=== PATIENT | female | born 1955 | race Caucasian/White ===

== ENCOUNTER 2017-01-30 06:10 | Emergency (ER) | payer MEDICARE, MEDICAID ==
[~2017-01-30] VITALS: Ht 170.2 cm; Wt 68.2 kg
[2017-01-30] MEDS ORDERED: LORA10TA7 PO (06:38)
[2017-01-30] MEDS ORDERED: HALO5 PO (06:38)
[2017-01-30] MEDS ORDERED: BENZ1TAB10 PO (06:38)
[2017-01-30] MEDS ORDERED: DIVA500T35 PO (06:38)
[2017-01-30] MEDS ORDERED: FOLI1 PO (06:38)
[2017-01-30 07:00] LABS: BASOPHILS # (AUTO) 0.03 K/uL (0.00-0.20); BASOPHILS % (AUTO) 0.5 % (0.0-2.0); EOSINOPHILS # (AUTO) 0.02 K/uL (0.00-0.70); EOSINOPHILS % (AUTO) 0.41 % (1.0-6.0); HEMOGLOBIN 14.2 g/dL (12.0-16.0); LYMPHOCYTES # (AUTO) 1.5 K/uL (1.0-4.8); LYMPHOCYTES % (AUTO) 25.7 % (22.0-44.0); MEAN CORPUSCULAR HEMOGLOBIN 34.1 pg (26.0-34.0); MEAN CORPUSCULAR HGB CONC 33.8 G/dL (31.0-37.0); MEAN CORPUSCULAR VOLUME 101 fL (80-100); MONOCYTES # (AUTO) 0.6 K/uL (0.1-1.0); MONOCYTES % (AUTO) 9.2 % (2.0-9.0); NEUTROPHILS # (AUTO) 3.8 K/uL (1.8-7.7); NEUTROPHILS % (AUTO) 64.2 % (40.0-70.0); PLATELET COUNT (AUTO) 180 K/uL (150-450); RED BLOOD CELL COUNT(AUTO) 4.16 MIL/uL (4.00-5.20); RED CELL DISTRIBUTION WIDTH 12.8 % (11.5-14.5)
[2017-01-30 07:24] LABS: RBC MORPHOLOGY COMMENT ABNORMAL RBC MORPH
[2017-01-30 07:27] LABS: ANION GAP 9 mmol/L (8-16); CALCIUM, TOTAL 8.6 mg/dL (8.8-10.5); CARBON DIOXIDE 28 mmol/L (22-29); CHLORIDE 107 mmol/L (98-107); CREATININE 0.68 mg/dL (0.60-1.30); GLOMERULAR FILTR. RATE CALC > 60 mL/min (>60); POTASSIUM 4.3 mmol/L (3.5-5.1); SODIUM SERUM 144 mmol/L (136-145); UREA NITROGEN, BLOOD 11 mg/dL (7-18)
[2017-01-30 07:34] LABS: ALANINE AMINOTRANSFERASE 32 U/L (12-78); ALBUMIN 3.3 g/dL (3.4-5.0); ASPARTATE AMINOTRANSFERASE 22 U/L (15-37); BILIRUBIN,TOTAL 0.5 mg/dL (0.1-1.0); TOTAL PROTEIN, SERUM 6.6 g/dL (6.4-8.2); VALPROIC ACID 59 mcg/mL (50-100)
[2017-01-30 07:50] VITALS: BP 142/78
== END 2017-01-30 08:47 | disposition home or self-care (01) ==
LOC: EMS 06:12
DX: R55 Syncope and collapse (principal); M54.2 Cervicalgia
CPT/HCPCS: 70450; 93005; 99285

== ENCOUNTER 2020-05-30 09:25 | Emergency (ER) | payer MEDICARE, MEDICAID ==
[~2020-05-30] VITALS: Ht 165.1 cm; Wt 59.1 kg
[~2020-05-30 09:25] MED LIST: BENZ1TAB10 PO; DIVA-112 PO; FOLI-130 PO; HALO5TAB2 PO; LORA10TA7 PO
[2020-05-30 10:37] LABS: BASOPHILS % (AUTO) 0.7 % (0.0-2.0); EOSINOPHILS % (AUTO) 1.1 % (1.0-6.0); HEMATOCRIT 38.3 % (36-46); HEMOGLOBIN 13.2 g/dL (12.0-16.0); LYMPHOCYTES # (AUTO) 1.4 K/uL (1.0-4.8); LYMPHOCYTES % (AUTO) 35.5 % (22.0-44.0); MEAN CORPUSCULAR HEMOGLOBIN 34.4 pg (26.0-34.0); MEAN CORPUSCULAR HGB CONC 34.5 G/dL (31.0-37.0); MEAN CORPUSCULAR VOLUME 100 fL (80-100); MONOCYTES # (AUTO) 0.3 K/uL (0.1-1.0); MONOCYTES % (AUTO) 7.6 % (2.0-9.0); NEUTROPHILS # (AUTO) 2.2 K/uL (1.8-7.7); NEUTROPHILS % (AUTO) 55.1 % (40.0-70.0); PLATELET COUNT (AUTO) 202 K/uL (150-450); RED BLOOD CELL COUNT(AUTO) 3.85 MIL/uL (4.00-5.20); RED CELL DISTRIBUTION WIDTH 14.5 % (11.5-14.5)
[2020-05-30 10:50] LABS: ANION GAP 6 mmol/L (8-16); CALCIUM, TOTAL 9.4 mg/dL (8.8-10.5); CARBON DIOXIDE 27 mmol/L (22-29); CHLORIDE 103 mmol/L (98-107); CREATININE 0.84 mg/dL (0.60-1.30); GLOMERULAR FILTR. RATE CALC > 60 mL/min (>60); GLUCOSE,RANDOM 144 mg/dL (70-110); POTASSIUM 3.7 mmol/L (3.5-5.1); SODIUM SERUM 136 mmol/L (136-145); UREA NITROGEN, BLOOD 11 mg/dL (7-18)
[2020-05-30 10:55] LABS: ALANINE AMINOTRANSFERASE 21 U/L (12-78); ALBUMIN 3.1 g/dL (3.4-5.0); ALKALINE PHOSPHATASE 50 U/L (46-116); ASPARTATE AMINOTRANSFERASE 22 U/L (15-37); BILIRUBIN,TOTAL 0.4 mg/dL (0.1-1.0); TOTAL PROTEIN, SERUM 6.7 g/dL (6.4-8.2)
[2020-05-30 11:02] LABS: AMPHET/METH SCREEN,URINE NEGATIVE (NEGATIVE); BARBITURATE SCREEN, URINE NEGATIVE (NEGATIVE); BENZODIAZEPINES SCREEN,URINE NEGATIVE (NEGATIVE); CANNABINOID SCREEN,URINE NEGATIVE (NEGATIVE); COCAINE SCREEN,URINE NEGATIVE (NEGATIVE); METHADONE SCREEN, URINE NEGATIVE (NEGATIVE); OPIATE SCREEN,URINE NEGATIVE (NEGATIVE)
[2020-05-30 11:03] LABS: PHENCYCLIDINE SCREEN,URINE NEGATIVE (NEGATIVE)
[2020-05-30 12:49] LABS: BILIRUBIN,URINE NEGATIVE (NEGATIVE); GLUCOSE, URINE (UA) NEGATIVE (NEGATIVE); KETONES,URINE NEGATIVE (NEGATIVE); LEUKOCYTE ESTERASE ,URINE SMALL (NEGATIVE); NITRATE,URINE NEGATIVE (NEGATIVE); OCCULT BLOOD,URINE NEGATIVE (NEGATIVE); PROTEIN,URINE NEGATIVE (NEGATIVE)
[2020-05-30 13:04] LABS: APPEARANCE,URINE HAZY (CLEAR)
[2020-05-30 13:10] LABS: BACTERIA,URINE None Seen /HPF (None Seen); RBC,URINE None Seen /HPF (0-2)
[2020-05-30 14:39] VITALS: BP 138/77
== END 2020-05-30 14:42 | disposition home or self-care (01) ==
LOC: EMS 09:27
DX: F69 Unspecified disorder of adult personality and behavior (principal); D72.819 Decreased white blood cell count, unspecified; F31.9 Bipolar disorder, unspecified
CPT/HCPCS: 36415; 80053; 80307; 81001; 85025; 99285; G0480; 51702

== ENCOUNTER 2023-10-12 16:23 | Inpatient (IN) | payer MEDICARE, OTHER ==
[~2023-10-12] VITALS: Ht 154.9 cm; Wt 59.9 kg
[~2023-10-12 16:23] MED LIST changes: -BENZ1TAB10 PO; +BENZ1TAB84 PO
[2023-10-12] MEDS ORDERED: SODIUM CHLORIDE 0.9% 1,800 ML IV ONE ×2 (17:45→19:15)
[2023-10-12] MEDS ORDERED: 0.9% SODIUM CHLORIDE 10 ML SYRINGE IVP PRN (17:45)
[2023-10-12] MEDS ORDERED: DIVA-85 PO (17:46)
[2023-10-12] MEDS ORDERED: MIRT-92 PO (17:46)
[2023-10-12] MEDS ORDERED: OLAN5TAB77 PO (17:46)
[2023-10-12] MEDS ORDERED: FAMO20 PO (17:46)
[2023-10-12 18:47] LABS: BASOPHILS % (AUTO) 0.6 % (0.0-2.0); EOSINOPHILS % (AUTO) 0.4 % (1.0-6.0); HEMATOCRIT 41.8 % (36-46); HEMOGLOBIN 14.9 g/dL (12.0-16.0); LYMPHOCYTES # (AUTO) 2.3 K/uL (1.0-4.8); LYMPHOCYTES % (AUTO) 28.5 % (22.0-44.0); MEAN CORPUSCULAR HGB CONC 35.5 G/dL (31.0-37.0); MEAN CORPUSCULAR VOLUME 104 fL (80-100); MONOCYTES # (AUTO) 1.1 K/uL (0.1-1.0); NEUTROPHILS # (AUTO) 4.6 K/uL (1.8-7.7); NEUTROPHILS % (AUTO) 56.5 % (40.0-70.0); PLATELET COUNT (AUTO) 170 K/uL (150-450); RED BLOOD CELL COUNT(AUTO) 4.02 MIL/uL (4.00-5.20); RED CELL DISTRIBUTION WIDTH 15.2 % (11.5-14.5); WHITE BLOOD COUNT (AUTO) 8.2 K/uL (4.5-11.0)
[2023-10-12] MEDS ORDERED: LORA-999 PO (18:49)
[2023-10-12] MEDS ORDERED: HYDR-4723 PO (18:49)
[2023-10-12] MEDS ORDERED: MULT-248 PO (18:49)
[2023-10-12] MEDS ORDERED: HALO5TAB23 PO (18:49)
[2023-10-12] MEDS ORDERED: SENN-376 PO (18:49)
[2023-10-12] MEDS ORDERED: CHOL25TA4 PO (18:49)
[2023-10-12] MEDS ORDERED: DIVA125C20 PO (18:49)
[2023-10-12] MEDS ORDERED: BENZ1TAB84 PO (18:49)
[2023-10-12 18:53] LABS: ANION GAP 8 mmol/L (8-16); CALCIUM, TOTAL 10.3 mg/dL (8.8-10.5); CARBON DIOXIDE 30 mmol/L (22-29); CHLORIDE 106 mmol/L (98-107); CREATININE 0.97 mg/dL (0.60-1.30); GLOMERULAR FILTR. RATE CALC 57 mL/min (>60); GLUCOSE,RANDOM 96 mg/dL (70-110); INR 1.2 (0.9-1.1); PROTHROMBIN TIME 12.1 SEC (9.4-11.6); SODIUM SERUM 144 mmol/L (136-145); UREA NITROGEN, BLOOD 21 mg/dL (7-18)
[2023-10-12 18:59] LABS: ALANINE AMINOTRANSFERASE 43 U/L (12-78); ALBUMIN 3.3 g/dL (3.4-5.0); ALKALINE PHOSPHATASE 78 U/L (46-116); ASPARTATE AMINOTRANSFERASE 78 U/L (15-37); BILIRUBIN,TOTAL 0.9 mg/dL (0.1-1.0)
[2023-10-12] MEDS ORDERED: CefTRIAXone 1 GM/DEXTROSE 50 ML IV ONE (19:15)
[2023-10-12] MEDS ORDERED: CEPH500C2 PO (19:23)
[2023-10-12] MEDS ORDERED: DIVA-111 PO (19:23)
[2023-10-12 19:32] LABS: APPEARANCE,URINE CLEAR (CLEAR); BILIRUBIN,URINE NEGATIVE (NEGATIVE); COLOR,URINE YELLOW (YELLOW); GLUCOSE, URINE (UA) NEGATIVE (NEGATIVE); KETONES,URINE NEGATIVE (NEGATIVE); LEUKOCYTE ESTERASE ,URINE NEGATIVE (NEGATIVE); NITRATE,URINE NEGATIVE (NEGATIVE); OCCULT BLOOD,URINE NEGATIVE (NEGATIVE); PROTEIN,URINE NEGATIVE (NEGATIVE); SPECIFIC GRAVITIY, URINE 1.023 (1.003-1.030)
[2023-10-12 19:35] LABS: RBC MORPHOLOGY COMMENT ABNORMAL RBC MORPH
[2023-10-12] MEDS ORDERED: ONDANSETRON HCL 4 MG/2 ML VIAL IVP PRN (20:00)
[2023-10-12] MEDS ORDERED: SODIUM CHLORIDE 0.9% 1,000 ML IV ONE (20:00)
[2023-10-12] MEDS ORDERED: ACETAMINOPHEN 325 MG TABLET PO PRN (20:00)
[2023-10-12 20:38] LABS: COVID AG,FIA SOURCE NASAL SWAB
[2023-10-12] MEDS: DOCUSATE SODIUM 100 MG CAPSULE PO SCH (21:00)
[2023-10-12 21:17] LABS: SARS-COV2 (COVID) ANTIGEN,FIA Negative (Negative)
[2023-10-12 22:55] VITALS: BP 138/98; PULSE 89; RESP 24; TEMP 97.7
[2023-10-13] VITALS: BP 122/60; PULSE 86; RESP 20; TEMP 98.3
[2023-10-13 04:00] VITALS: BP 111/61; PULSE 68; RESP 20; TEMP 98.1
[2023-10-13 07:23] VITALS: BP 118/89; PULSE 87; RESP 18; TEMP 98
[2023-10-13] MEDS: HEPARIN SODIUM,PORCINE 5,000 UNITS/ML VIAL SQ SCH ×4 (08:17→23:42)
[2023-10-13] MEDS: LORazepam 2 MG/ML VIAL IM PRN ×3 (08:17→23:44)
[2023-10-13] MEDS: FAMOTIDINE 20 MG TABLET PO SCH (09:00)
[2023-10-13] MEDS: DIVALPROEX SODIUM 250 MG DR TABLET PO SCH ×3 (09:00→23:42)
[2023-10-13] MEDS: DOCUSATE SODIUM 100 MG CAPSULE PO SCH ×2 (09:00→23:42)
[2023-10-13 11:41] VITALS: BP 113/65; PULSE 90; RESP 18; TEMP 98
[2023-10-13 15:20] VITALS: BP 130/67; PULSE 76; RESP 18; TEMP 98
[2023-10-13 19:21] VITALS: BP 122/64; PULSE 77; RESP 19; TEMP 97.7
[2023-10-13] MEDS ORDERED: SODIUM CHLORIDE 0.9% 500 ML IV ONE (23:28)
[2023-10-13] MEDS: CefTRIAXone 1 GM/DEXTROSE 50 ML IV SCH (23:41)
[2023-10-14 00:24] VITALS: BP 124/63; PULSE 74; RESP 19; TEMP 98.3
[2023-10-14 05:47] VITALS: BP 136/62; PULSE 71; RESP 18; TEMP 98.3
[2023-10-14 07:22] VITALS: BP 118/62; PULSE 73; RESP 18; TEMP 98
[2023-10-14] MEDS: HEPARIN SODIUM,PORCINE 5,000 UNITS/ML VIAL SQ SCH ×2 (08:22→16:47)
[2023-10-14] MEDS: DIVALPROEX SODIUM 250 MG DR TABLET PO SCH ×3 (08:22→20:32)
[2023-10-14] MEDS: DOCUSATE SODIUM 100 MG CAPSULE PO SCH ×2 (08:22→20:32)
[2023-10-14] MEDS: FAMOTIDINE 20 MG TABLET PO SCH (08:23)
[2023-10-14] MEDS: LORazepam 2 MG/ML VIAL IVP PRN (11:03)
[2023-10-14 11:17] VITALS: BP 130/62; PULSE 81; RESP 18; TEMP 98
[2023-10-14 15:57] VITALS: BP 121/65; PULSE 81; RESP 18; TEMP 98
[2023-10-14 20:10] VITALS: BP 145/63; PULSE 81; RESP 18; TEMP 97.9
[2023-10-14] MEDS: CefTRIAXone 1 GM/DEXTROSE 50 ML IV SCH (20:32)
[2023-10-15] MEDS: HEPARIN SODIUM,PORCINE 5,000 UNITS/ML VIAL SQ SCH ×4 (00:48→23:10)
[2023-10-15 00:54] VITALS: BP 127/78; PULSE 91; RESP 18; TEMP 98.3
[2023-10-15 05:44] VITALS: BP 134/76; PULSE 84; RESP 18; TEMP 97.7
[2023-10-15 07:40] VITALS: BP 128/53; PULSE 72; RESP 18; TEMP 97.9
[2023-10-15] MEDS: DOCUSATE SODIUM 100 MG CAPSULE PO SCH ×2 (09:11→20:11)
[2023-10-15] MEDS: DIVALPROEX SODIUM 250 MG DR TABLET PO SCH ×3 (09:11→21:06)
[2023-10-15] MEDS: FAMOTIDINE 20 MG TABLET PO SCH (09:11)
[2023-10-15 11:35] VITALS: BP 136/75; PULSE 84; RESP 18; TEMP 97.1
[2023-10-15 15:34] VITALS: BP 140/78; PULSE 90; RESP 18; TEMP 97.9
[2023-10-15] MEDS: CefTRIAXone 1 GM/DEXTROSE 50 ML IV SCH (20:11)
[2023-10-15 20:27] VITALS: BP 104/49; PULSE 82; RESP 17; TEMP 97.3
[2023-10-15] MEDS: LORazepam 2 MG/ML VIAL IVP PRN (22:00)
[2023-10-16 00:17] VITALS: BP 125/68; PULSE 77; RESP 17; TEMP 97.3
[2023-10-16 04:15] VITALS: BP 118/59; PULSE 80; RESP 18; TEMP 97.9
[2023-10-16] MEDS: HEPARIN SODIUM,PORCINE 5,000 UNITS/ML VIAL SQ SCH ×2 (08:00→16:00)
[2023-10-16 08:22] VITALS: BP 106/64; PULSE 65; RESP 18; TEMP 98.1
[2023-10-16] MEDS: DOCUSATE SODIUM 100 MG CAPSULE PO SCH (08:48)
[2023-10-16] MEDS: FAMOTIDINE 20 MG TABLET PO SCH (08:50)
[2023-10-16 11:34] LABS: BASOPHILS % (AUTO) 0.8 % (0.0-2.0); EOSINOPHILS % (AUTO) 3.6 % (1.0-6.0); HEMATOCRIT 35.4 % (36-46); HEMOGLOBIN 12.9 g/dL (12.0-16.0); LYMPHOCYTES # (AUTO) 2.4 K/uL (1.0-4.8); LYMPHOCYTES % (AUTO) 51.4 % (22.0-44.0); MEAN CORPUSCULAR HEMOGLOBIN 37.8 pg (26.0-34.0); MEAN CORPUSCULAR HGB CONC 36.3 G/dL (31.0-37.0); MEAN CORPUSCULAR VOLUME 104 fL (80-100); MONOCYTES # (AUTO) 0.4 K/uL (0.1-1.0); MONOCYTES % (AUTO) 9.4 % (2.0-9.0); NEUTROPHILS # (AUTO) 1.6 K/uL (1.8-7.7); PLATELET COUNT (AUTO) 164 K/uL (150-450); RED CELL DISTRIBUTION WIDTH 15.2 % (11.5-14.5); WHITE BLOOD COUNT (AUTO) 4.7 K/uL (4.5-11.0)
[2023-10-16 11:39] LABS: NEUTROPHILS % (AUTO) 24.8 % (40.0-70.0); RBC MORPHOLOGY COMMENT ABNORMAL RBC MORPH
[2023-10-16] MEDS: DIVALPROEX SODIUM 250 MG DR TABLET PO SCH ×2 (11:48→16:00)
[2023-10-16 11:50] LABS: ANION GAP 9 mmol/L (8-16); CALCIUM, TOTAL 9.4 mg/dL (8.8-10.5); CARBON DIOXIDE 27 mmol/L (22-29); CHLORIDE 108 mmol/L (98-107); CREATININE 0.69 mg/dL (0.60-1.30); GLOMERULAR FILTR. RATE CALC > 60 mL/min (>60); GLUCOSE,RANDOM 111 mg/dL (70-110); POTASSIUM 3.8 mmol/L (3.5-5.1); SODIUM SERUM 144 mmol/L (136-145); UREA NITROGEN, BLOOD 13 mg/dL (7-18)
[2023-10-16 16:16] VITALS: BP 104/61; PULSE 77; RESP 18; TEMP 96.5
== END 2023-10-16 19:15 | disposition home or self-care (01) | DRG 871 ==
LOC: EMS 16:25 → 5S 23:20 → 6S 10-16 03:50
PROVIDERS: ADMIT Internal Medicine; ATTEND Internal Medicine
DX: A41.9 Sepsis, unspecified organism (principal); G92.8 Other toxic encephalopathy; N39.0 Urinary tract infection, site not specified; F31.9 Bipolar disorder, unspecified; G20.A1 Parkinson's disease without dyskinesia, without mention of fluctuations; Z20.822 Contact with and (suspected) exposure to COVID-19; F02.80 Dementia in other diseases classified elsewhere, unspecified severity, without behavioral disturbance, psychotic disturbance, mood disturbance, and anxiety; K21.9 Gastro-esophageal reflux disease without esophagitis; Z79.899 Other long term (current) drug therapy
CPT/HCPCS: 71045; 80048; 80053; 80164; 81003; 83605; 84145; 85025; 85610; 87040; 92610; 93005; 99285; G0378; J0696; J1644; J2060; J7030; J7040; 36415-L1; 36415-TC

== ENCOUNTER 2023-12-25 17:14 | Inpatient (IN) | payer MEDICARE, MEDICAID ==
[~2023-12-25] VITALS: Ht 160 cm; Wt 67.0 kg
[~2023-12-25 17:14] MED LIST changes: +CHOL25TA4 PO; +DIVA-111 PO; -DIVA-112 PO; +FAMO20 PO; -FOLI-130 PO; -HALO5TAB2 PO; +HALO5TAB23 PO; -LORA10TA7 PO; +MIRT-92 PO; +MULT-248 PO; +OLAN5TAB77 PO; +SENN-376 PO
[2023-12-25] MEDS ORDERED: HYDR-4723 PO (17:32)
[2023-12-25] MEDS ORDERED: MIRT45TA83 PO (17:32)
[2023-12-25] MEDS ORDERED: LORA-999 PO (17:32)
[2023-12-25] MEDS ORDERED: OLAN10TA74 PO (17:32)
[2023-12-25] MEDS ORDERED: DIVA125C20 PO ×3 (17:32)
[2023-12-25] MEDS ORDERED: OLAN5TAB52 PO (17:32)
[2023-12-25 18:14] LABS: BASOPHILS % (AUTO) 0.5 % (0.0-2.0); EOSINOPHILS % (AUTO) 0.9 % (1.0-6.0); HEMATOCRIT 39.2 % (36-46); HEMOGLOBIN 13.8 g/dL (12.0-16.0); LYMPHOCYTES # (AUTO) 2.3 K/uL (1.0-4.8); LYMPHOCYTES % (AUTO) 48.5 % (22.0-44.0); MEAN CORPUSCULAR HEMOGLOBIN 36.7 pg (26.0-34.0); MEAN CORPUSCULAR HGB CONC 35.3 G/dL (31.0-37.0); MEAN CORPUSCULAR VOLUME 104 fL (80-100); MONOCYTES # (AUTO) 0.5 K/uL (0.1-1.0); MONOCYTES % (AUTO) 11.1 % (2.0-9.0); NEUTROPHILS # (AUTO) 1.9 K/uL (1.8-7.7); PLATELET COUNT (AUTO) 140 K/uL (150-450); RED BLOOD CELL COUNT(AUTO) 3.77 MIL/uL (4.00-5.20); WHITE BLOOD COUNT (AUTO) 4.8 K/uL (4.5-11.0)
[2023-12-25 18:21] LABS: ANION GAP 10 mmol/L (8-16); CALCIUM, TOTAL 9.3 mg/dL (8.8-10.5); CARBON DIOXIDE 26 mmol/L (22-29); CHLORIDE 108 mmol/L (98-107); CREATININE 0.64 mg/dL (0.60-1.30); GLOMERULAR FILTR. RATE CALC > 60 mL/min (>60); GLUCOSE,RANDOM 155 mg/dL (70-110); POTASSIUM 3.5 mmol/L (3.5-5.1); SODIUM SERUM 144 mmol/L (136-145); UREA NITROGEN, BLOOD 11 mg/dL (7-18)
[2023-12-25 18:26] LABS: ALANINE AMINOTRANSFERASE 25 U/L (12-78); ALBUMIN 2.9 g/dL (3.4-5.0); ALKALINE PHOSPHATASE 73 U/L (46-116); ASPARTATE AMINOTRANSFERASE 27 U/L (15-37); BILIRUBIN,TOTAL 0.4 mg/dL (0.1-1.0); TOTAL PROTEIN, SERUM 6.4 g/dL (6.4-8.2)
[2023-12-25 18:28] LABS: TROPONIN I-HIGH SENSITIVITY 18 ng/L (<51)
[2023-12-25 19:19] LABS: ALCOHOL, BLOOD (SERUM) < 3 mg/dL (0-10)
[2023-12-25 20:22] LABS: COVID AG,FIA SOURCE NASAL SWAB
[2023-12-25 20:47] LABS: SARS-COV2 (COVID) ANTIGEN,FIA Negative (Negative)
[2023-12-26] VITALS (7 sets, daily range): BP systolic 107–140; BP diastolic 56–78; PULSE 65–87; RESP 14–18; TEMP 97.5–99; O2SAT 97–100
[2023-12-26] MEDS ORDERED: LORazepam 2 MG/ML VIAL ONE ×2 (02:07→02:09)
[2023-12-26] MEDS ORDERED: HALOPERIDOL LACTATE 5 MG/ML VIAL ONE (02:10)
[2023-12-26] MEDS ORDERED: DiphenhydrAMINE HCL 50 MG/ML VIAL ONE (02:11)
[2023-12-26] MEDS: HALOPERIDOL LACTATE 5 MG/ML VIAL IM ONE (02:28)
[2023-12-26] MEDS: LORazepam 2 MG/ML VIAL IM ONE (02:28)
[2023-12-26] MEDS: DiphenhydrAMINE HCL 50 MG/ML VIAL IM ONE (02:28)
[2023-12-26] MEDS ORDERED: INFLUENZA VIRUS VACCINE QVS 2023-24 (6MO+)/PF 60 MCG/0.5 ML SYRINGE IM. ONE (06:45)
[2023-12-26] MEDS ORDERED: PNEUMOCOCCAL VACCINE POLYVALENT 0.5 ML SYRINGE [PPSV23] IM. ONE (06:45)
[2023-12-26] MEDS ORDERED: GuaiFENesin/D-METHORPHAN [SUGAR-FREE] 200-20MG/10 ML SYRUP UDCUP PO PRN (07:45)
[2023-12-26] MEDS ORDERED: ALBUTEROL SULFATE HFA 90 MCG/PUFF 8 GM INHALER IH PRN (07:45)
[2023-12-26] MEDS ORDERED: DOCUSATE SODIUM 100 MG CAPSULE PO PRN (07:45)
[2023-12-26] MEDS ORDERED: ACETAMINOPHEN 325 MG TABLET PO PRN (07:45)
[2023-12-26] MEDS ORDERED: MAG HYDROX/ALUMINUM HYD/SIMETH ES 30 ML SUSPENSION UDCUP PO PRN (07:45)
[2023-12-26] MEDS ORDERED: NICOTINE 14 MG/24 HOUR PATCH TD PRN (07:45)
[2023-12-26] MEDS ORDERED: PETROLATUM,WHITE 28 GM JELLY TP PRN (07:45)
[2023-12-26] MEDS ORDERED: ONDANSETRON HCL 4 MG TABLET PO PRN (07:45)
[2023-12-26] MEDS ORDERED: LOPERAMIDE HCL 2 MG CAPSULE PO PRN (07:45)
[2023-12-26] MEDS ORDERED: CloNIDine HCL 0.1 MG TABLET PO PRN (07:45)
[2023-12-26] MEDS ORDERED: MAGNESIUM HYDROXIDE SUSPENSION 30 ML UDCUP PO PRN (07:45)
[2023-12-26] MEDS ORDERED: IBUPROFEN 400 MG TABLET PO PRN (07:45)
[2023-12-26] MEDS: CHOLECALCIFEROL (VIT D3) 1,000 UNITS [25 MCG] TABLET PO SCH (13:16)
[2023-12-26] MEDS: HALOPERIDOL 5 MG TABLET PO PRN (16:44)
[2023-12-27 08:12] VITALS: BP 123/76; PULSE 97; RESP 18; TEMP 97.4; O2SAT 97
[2023-12-27 08:20] LABS: HEMOGLOBIN A1C 4.5 % (3.8-5.6)
[2023-12-27 08:44] LABS: THYROID STIMULATING HORMONE 4.07 uIU/mL (0.36-3.74)
[2023-12-27] MEDS: FAMOTIDINE 20 MG TABLET PO SCH (09:07)
[2023-12-27] MEDS: BENZTROPINE MESYLATE 1 MG TABLET PO SCH (13:05)
[2023-12-27] MEDS: HALOPERIDOL 5 MG TABLET PO SCH (17:01)
[2023-12-27] MEDS: MIRTAZAPINE 30 MG TABLET PO SCH (20:48)
[2023-12-27] MEDS: OLANZapine 10 MG TABLET PO SCH (20:48)
[2023-12-27] MEDS: DIVALPROEX SODIUM 125 MG DR CAPSULE PO SCH (20:50)
[2023-12-27 20:51] VITALS: BP 152/65; PULSE 67; RESP 18; TEMP 97.8; O2SAT 97
[2023-12-28] MEDS: DIVALPROEX SODIUM 125 MG DR CAPSULE PO SCH ×2 (08:41→12:18)
[2023-12-28 20:00] VITALS: BP 122/78; PULSE 81; RESP 17; TEMP 97.7; O2SAT 96
[2023-12-28 20:14] VITALS: BP 122/78; PULSE 81; RESP 17; TEMP 97; O2SAT 96
[2023-12-28] MEDS: ZOLPIDEM TARTRATE 10 MG TABLET PO PRN (22:42)
[2023-12-29 11:10] VITALS: BP 143/72; PULSE 97; RESP 17; TEMP 97.6; O2SAT 98
[2023-12-29 11:18] VITALS: BP 143/72; PULSE 97; RESP 17; TEMP 97.6; O2SAT 98
[2023-12-29] MEDS ORDERED: MUPIROCIN CALCIUM 2% 15 GM CREAM TP SCH (17:00)
[2023-12-29 21:00] VITALS: BP 117/61; PULSE 85; RESP 17; TEMP 97.6; O2SAT 96
[2023-12-29] MEDS: MUPIROCIN CALCIUM 2% 22 GM OINTMENT NASAL SCH (21:38)
[2023-12-30 08:51] LABS: ALCOHOL, URINE DRUG SCREEN NEGATIVE (NEGATIVE); AMPHET/METH SCREEN,URINE NEGATIVE (NEGATIVE); BARBITURATE SCREEN, URINE NEGATIVE (NEGATIVE); BENZODIAZEPINES SCREEN,URINE NEGATIVE (NEGATIVE); CANNABINOID SCREEN,URINE NEGATIVE (NEGATIVE); COCAINE SCREEN,URINE NEGATIVE (NEGATIVE); METHADONE SCREEN, URINE NEGATIVE (NEGATIVE); OPIATE SCREEN,URINE NEGATIVE (NEGATIVE); PHENCYCLIDINE SCREEN,URINE NEGATIVE (NEGATIVE)
[2023-12-30 08:56] LABS: APPEARANCE,URINE HAZY (CLEAR); BILIRUBIN,URINE NEGATIVE (NEGATIVE); COLOR,URINE YELLOW (YELLOW); GLUCOSE, URINE (UA) NEGATIVE (NEGATIVE); KETONES,URINE NEGATIVE (NEGATIVE); LEUKOCYTE ESTERASE ,URINE NEGATIVE (NEGATIVE); NITRATE,URINE NEGATIVE (NEGATIVE); OCCULT BLOOD,URINE NEGATIVE (NEGATIVE); PH,URINE 6.5 (5.0-8.0); PH,URINE DRUG SCREEN 6.5 (5.0-8.0); PROTEIN,URINE NEGATIVE (NEGATIVE); SPECIFIC GRAVITIY, URINE 1.013 (1.003-1.030)
[2023-12-30 08:59] VITALS: BP 102/62; PULSE 104; RESP 20; TEMP 97.6; O2SAT 98
[2023-12-30 20:40] VITALS: BP 144/73; PULSE 97; RESP 18; TEMP 98
[2023-12-31] MEDS: LORazepam 1 MG TABLET PO PRN (09:50)
[2023-12-31 13:20] VITALS: BP 127/69; PULSE 100; RESP 18; TEMP 97.5; O2SAT 96
[2023-12-31 22:08] VITALS: BP 121/64; PULSE 88; RESP 17; TEMP 97.1; O2SAT 99
[2024-01-01 08:37] VITALS: BP 117/64; PULSE 94; RESP 18; TEMP 98.1; O2SAT 98
[2024-01-01] MEDS ORDERED: CHOL25TA4 PO (11:32)
[2024-01-01] MEDS ORDERED: DIVA125C20 PO ×3 (11:32)
[2024-01-01] MEDS ORDERED: OLAN10TA74 PO (11:32)
[2024-01-01] MEDS ORDERED: MIRT-149 PO (11:32)
[2024-01-01] MEDS ORDERED: FAMO20 PO (11:32)
[2024-01-01] MEDS ORDERED: HALO5TAB23 PO (11:32)
[2024-01-01] MEDS ORDERED: BENZ1TAB84 PO (11:32)
== END 2024-01-01 17:55 | disposition home or self-care (01) | DRG 885 ==
LOC: EMS 17:18 → B2X 12-26 03:26
PROVIDERS: ADMIT Psychiatry & Neurology Child & Adolescent Psychiatry; ATTEND Psychiatry & Neurology Child & Adolescent Psychiatry
DX: F20.0 Paranoid schizophrenia (principal); R47.01 Aphasia; K21.9 Gastro-esophageal reflux disease without esophagitis; R73.9 Hyperglycemia, unspecified; Z20.822 Contact with and (suspected) exposure to COVID-19; H91.3 Deaf nonspeaking, not elsewhere classified; F31.9 Bipolar disorder, unspecified; G20.A1 Parkinson's disease without dyskinesia, without mention of fluctuations; Z79.899 Other long term (current) drug therapy
CPT/HCPCS: 80053; 80164; 80307; 81003; 83036; 84436; 84443; 84484; 85025; 87081; 99285; G0480; J1200; J1630; J2060